=== PATIENT | female | born 1975 | race African-American/Black ===

== ENCOUNTER 2016-07-27 00:05 | Emergency (ER) | payer OTHER ==
--- NOTE | ~2016-07-27 | CR172 ---
[facility]. [facility] A Service of [facility] & [facility] RADIOLOGY TEXT RESULTS PATIENT: SCOOBY VÁSQUEZ LOCATION: SED : 75 UNIT #: [id number] AGE: [address]: SAROJ ODOM SEX: F ORDER DR: [id number] [place] [address] [id number] E MR#: [id number] Acc #: [id number] NAME: SCOOBY VÁSQUEZ : 1975 SEX: F STUDY DATE/TIME: UNIT: SED ROOM: STUDY DESCRIPTION: CR Knee 3 Views Lt Attending Physician: Saroj Odom Ordering Physician: Nicholas Shi Primary Care Physician: Primary Care Physician No MEDICAL IMAGING REPORT This report is preliminary unless electronic signature is present. EXAM Left knee 07/27 at 0053 hours INDICATIONS Generalized knee pain that started last night after fall with twisting injury. FINDINGS 3 views of the left knee were obtained. No fracture or malalignment is seen. There is no joint effusion. IMPRESSION Negative left knee. Dictated by... Beny Xiong Jr., M.D. THIS IS AN ELECTRONICALLY VERIFIED REPORT Beny Xiong Jr., M.D. at 07/27/2016 9:31 PM RLK/to TD: 07/27/2016 16:01 JOB #: [id number] MEDICAL IMAGING REPORT
[~2016-07-27 00:05] MED LIST: ERYTHROMYCIN O3.5 GM OD; FIORICET1 TAB PO; FLAGYL PO; FLONASE 0.05% N16 G1; IRON1 TAB PO; NAPROSYN500 MG PO; NO MEDICATIONS; POLYMYXIN B/TMP10 M1; PREDNISONE; PREDNISONE PO; ROBITUSSIN100 MG/52 PO; SUDAFED30 M1 PO; TOPIRAMATE100 MG PO; TYLENOL #3 PO; VOLTAREN75 MG PO; ZOFRAN PO; ZOLOFT100 MG PO; ZYRTEC; ZYRTEC-D TABLE1 EACH PO
== END 2016-07-27 01:44 | disposition home or self-care (01) ==
LOC: SED 00:05
DX: S93.401A Sprain of unspecified ligament of right ankle, initial encounter (principal); S83.92XA Sprain of unspecified site of left knee, initial encounter; R03.0 Elevated blood-pressure reading, without diagnosis of hypertension; X50.1XXA Overexertion from prolonged static or awkward postures, initial encounter; Y92.410 Unspecified street and highway as the place of occurrence of the external cause
CPT/HCPCS: 29530; 73562; 99283

== ENCOUNTER → 2016-08-14 | Outpatient (CLI) | payer OTHER ==
[~2016-08-14] MED LIST changes: +AMOXICILLIN PO; +MOBIC PO
--- NOTE | ~2016-08-14 | MR103 ---
[facility] A Service of [facility] & [facility] RADIOLOGY TEXT RESULTS PATIENT: SCOOBY VÁSQUEZ LOCATION: CMRI : 75 UNIT #: [id number] AGE: [address]: Meg Otoole SEX: F ORDER DR: [id number] [place] [id number] [facility]. [place], [place] [address] [id number] MR#: [id number] Acc #: [id number] NAME: SCOOBY VÁSQUEZ : 1975 SEX: F STUDY DATE/TIME: 08/14/2016 10:33 UNIT: [facility] ROOM: STUDY DESCRIPTION: MR Knee Wo Contrast Lt Attending Physician: Meg Otoole P.A.-C. Referring Physician: Meg Otoole P.A.-C. Ordering Physician: Meg Otoole P.A.-C. Primary Care Physician: Primary Care Physician No MRI CENTER REPORT This report is preliminary unless electronic signature is present. EXAM MRI of the left knee, 08/14/2016 COMPARISON Left knee radiographs 07/27/2016. HISTORY Order states left knee medial compartment pain after a twisting injury. History sheet states twisting injury chasing her on 07/27/2016. Patient turned but her leg did not and she felt about 3 pops. Anteromedial pain. Unable to straighten leg without pain. No knee surgery. FINDINGS There is no effusion or popliteal cyst. Patellar height is normal. Quadriceps and patellar tendons are intact. Patellofemoral alignment and articular cartilage are normal. There is mild inflammation in the suprapatellar fat pad which is a nonspecific finding which reportedly can be symptomatic. Cruciate ligaments are intact. The lateral meniscus, lateral collateral ligament complex and popliteus tendon are intact. Articular cartilage of the lateral compartment is normal. The medial meniscus and medial compartment articular cartilage are normal. There is a grade 1 MCL sprain. There is also prominent edema anterior to the MCL which can be related to injury of the medial retinaculum/medial patellofemoral ligament femoral attachment. There is however no evidence of a transient patellar dislocation injury pattern otherwise. [facility] A Service of [facility] & [facility] RADIOLOGY TEXT RESULTS PATIENT: SCOOBY VÁSQUEZ LOCATION: [facility] : 75 UNIT #: [id number] AGE: [address]: Meg Otoole SEX: F ORDER DR: IMPRESSION 1. Grade 1 MCL sprain. 2. Moderate edema anterior to the MCL in the region of the medial patellofemoral ligament/medial retinacular femoral attachment site concerning for retinacular/ligamentous injury. There are however, no correlative findings to suggest a transient patellar dislocation. 3. Cruciate ligaments and menisci are intact. 4. Mild inflammation suprapatellar fat pad. Dictated by... Sushila Perez M.D. THIS IS AN ELECTRONICALLY VERIFIED REPORT Sushila Perez M.D. at 08/15/2016 9:42 AM HERBER/carmen TD: 08/14/2016 23:34 JOB #: [id number] MRI CENTER REPORT Page 1 of 1 COPY
== END | disposition home or self-care (01) ==
LOC: CMRI 10:06
DX: M25.562 Pain in left knee (principal); S83.412A Sprain of medial collateral ligament of left knee, initial encounter
CPT/HCPCS: 73721

== ENCOUNTER 2017-01-08 18:02 | Emergency (ER) | payer OTHER ==
[~2017-01-08 18:02] MED LIST changes: -AMOXICILLIN PO; -MOBIC PO
[2017-01-08] MEDS ORDERED: AMOXICILLIN PO (18:18)
[2017-01-08] MEDS ORDERED: MOBIC PO (18:18)
== END 2017-01-08 20:25 | disposition home or self-care (01) ==
LOC: SED 18:02
DX: H92.02 Otalgia, left ear (principal); Z79.2 Long term (current) use of antibiotics
CPT/HCPCS: 99283

== ENCOUNTER 2017-01-09 18:49 | Emergency (ER) | payer OTHER ==
[~2017-01-09] VITALS: Ht 170.2 cm; Wt 83.9 kg
--- NOTE | ~2017-01-09 | CT71 ---
[facility] A Service [facility] RADIOLOGY TEXT RESULTS PATIENT: SCOOBY VÁSQUEZ LOCATION: [facility] : 75 UNIT #: [id number] AGE: [address]: Teodoro Howard SEX: F ORDER DR: [id number] [place] [id number] [facility]. [place], [place] [address] [id number] E MR#: [id number] Acc #: [id number] NAME: SCOOBY VÁSQUEZ : 1975 SEX: F STUDY DATE/TIME: 01/09/2017 20:21 UNIT: [facility] ROOM: STUDY DESCRIPTION: CT Head Wo Contrast Attending Physician: Teodoro Howard P.A.-C. Ordering Physician: Teodoro Howard P.A.-C. Primary Care Physician: [facility] MEDICAL IMAGING REPORT This report is preliminary unless electronic signature is present EXAM Noncontrast CT head, 01/09/2017 at 20:21 HISTORY Pain behind the left ear for [address] head, 04/21/[address] exam was performed with one or more of the following radiation dose reduction techniques: automatic exposure control, adjustment of mA and/or kV according to patient size, and iterative reconstruction. FINDINGS No acute intracranial hemorrhage, mass lesion, mass effect or midline shift is seen, and there is no convincing CT evidence of acute or evolving infarct. Calvaria is within normal limits. Paranasal sinuses are clear. Mastoid air cells are clear. Old right medial orbital wall fracture. IMPRESSION 1. No acute intracranial findings. 2. Old right medial orbital wall fracture. Dictated by... Sneha Fajardo M.D. THIS IS AN ELECTRONICALLY VERIFIED REPORT Sneha Fajardo M.D. at 01/10/2017 1:55 PM [place] TD: 01/10/2017 10:49 JOB #: [id number] [facility] A Service [facility] RADIOLOGY TEXT RESULTS PATIENT: SCOOBY VÁSQUEZ LOCATION: [place] [facility] #: [id number] : 75 UNIT #: [id number] AGE: [address]: Teodoro Howard PAC SEX: F ORDER DR: MEDICAL IMAGING REPORT Page 1 of 1 COPY
[~2017-01-09 18:49] MED LIST changes: +AMOXICILLIN PO; +MOBIC PO
[2017-01-09 20:15] LABS: BASOPHIL% 0.7 % (0-2.5); EOSINOPHIL# 0.2 X10e3 (0-0.7); EOSINOPHIL% 4.3 % (0.0-7.0); HEMATOCRIT 36.8 % (35.0-45.0); HEMOGLOBIN 12.7 gm/dL (12.0-16.0); LYMPHOCYTE# 2.7 X10e3 (1.0-3.5); LYMPHOCYTE% 46.3 % (17.0-45.0); MEAN CELL VOLUME 94.1 FL (83-96); MEAN CORPUSCULAR HEMOGLOBIN 32.4 PG (28-34); MEAN CORPUSCULAR HGB CONC 34.4 g/dL (30-36); MEAN PLATELET VOLUME 7.7 FL (6.5-11.5); MONOCYTE# 0.4 X10e3 (0-1.0); MONOCYTE% 7.5 % (3.0-12.0); NEUTROPHIL# 2.4 X10e3 (1.5-7.1); NEUTROPHIL% 41.2 % (40-75); PLATELET COUNT 280 X10e3 (140-420); RED BLOOD COUNT 3.91 X10e (3.90-5.30); RED CELL DISTRIBUTION WIDTH 12.8 % (11.0-15.5); WHITE BLOOD COUNT 5.8 X10e3 (4.0-10.5)
[2017-01-09 20:19] LABS: DIFF IND NO
[2017-01-09 20:39] LABS: ALBUMIN SERUM 4.1 g/dL (3.5-5.0); BILIRUBIN, DIRECT 0.1 mg/dL (0.0-0.2); BILIRUBIN,INDIRECT 0.6 mg/dL (0.0-0.9); BILIRUBIN,TOTAL 0.7 mg/dL (0.2-2.0); BUN/CREATININE RATIO 8.75; CREATININE SERUM 0.8 mg/dL (0.6-1.4); GLOM FILT RATE Estimated 106.2 mL/min (>60); POTASSIUM 4.1 mmol/L (3.5-5.1)
== END 2017-01-09 21:45 | disposition home or self-care (01) ==
LOC: CFTX 18:49 → CED 18:49 → CFTX 20:37
PROVIDERS: Physician Assistant
DX: H92.02 Otalgia, left ear (principal); G43.909 Migraine, unspecified, not intractable, without status migrainosus
CPT/HCPCS: 36415; 70450; 80048; 80076; 85025; 85652; 86140; 96361; 96374; 99283; J1885